=== PATIENT | male | born 1970 | race Caucasian/White ===

== ENCOUNTER → 2020-09-14 13:09 | Outpatient (BNVA) | payer OTHER, SELFPAY | PROVIDERS: Visit Provider Physician Assistant | DX: S93.692A Other sprain of left foot, initial encounter (principal); X50.1XXA Overexertion from prolonged static or awkward postures, initial encounter | CPT/HCPCS: 73630; 99203 ==

== ENCOUNTER 2024-08-31 15:29 | Emergency (ER) | payer OTHER, SELFPAY ==
--- NOTE | ~2024-08-31 | XR_ITS ---
CLINICAL HISTORY: HTN urgency 1 view chest x-ray. Comparison: None Findings: No consolidation. Heart size normal. No acute fracture. Impression: The lungs are clear. This document has been electronically signed by: Evan Carlos MD on 08/31/2024 19:37:31
--- NOTE | 2024-08-31 15:32 | ECG_ITS ---
Test Reason : CP Blood Pressure : */* mmHG Vent. Rate : 79 BPM Atrial Rate : 79 BPM P-R Int : 126 ms QRS Dur : 82 ms QT Int : 362 ms P-R-T Axes : 25 16 -79 degrees QTcB Int : 415 ms Normal sinus rhythm Minimal voltage criteria for LVH, may be normal variant ( Sokolow-Bill ) T wave abnormality, consider inferior ischemia Abnormal ECG No previous ECGs available Referred By: Generic ED Physician Electronically Signed By: Scott Payton
[2024-08-31 15:52] VITALS: BP 192/111; PULSE 85; RESP 16; TEMP 36.3; O2SAT 97; BMI 31.8
--- NOTE | 2024-08-31 15:52 | ED_ITS ---
HPI - General Adult General Chief complaint: General Medical Stated complaint: Sent from the [place], [facility] the [facility] Time Seen by Provider: 08/31/24 18:18 Source: patient Limitations: no limitations History of Present Illness ED Provider: Sowmya Lopez PA-C HPI narrative: 54-year-old male with a history of hypertension, who just started on amlodipine 3 days ago, presents with hypertension. Patient states he was seen at the [facility] for a separate issue, he was noted to be extremely hypertensive, they sent him to the emergency room for assessment. He had an EKG at that time that revealed a concerning change. Patient denies chest pain, shortness of breath. Denies headache, dizziness, nausea vomiting. Patient states he does have pending Cardiology consult. Related Data Allergies Allergy/AdvReac Type Severity Reaction Status Date / Time oxycodone Allergy Unknown Nausea Verified 08/31/24 15:56 Review of Systems 2 Review of Systems: Yes all other systems are reviewed and are negative Constitutional: Constitutional: Denies fatigue, Denies fever(s) and Denies headache(s) Eyes: Eyes: Denies change in vision ENT: Denies dizziness and Denies headache(s) Cardiovascular: Cardiovascular: Denies chest pain and Denies dyspnea Respiratory: Respiratory: Denies dyspnea Gastrointestinal: Gastrointestinal: Denies abdominal pain, Denies nausea and Denies vomiting Neurologic: Denies dizziness and Denies headache(s) Endocrine: Endocrine: Denies fatigue [facility] Past Medical History Attestation statement: The following information was validated with the patient. Social History Social History Alcohol intake: current Alcohol intake frequency: holidays/special occasions only Physical Exam ED Vital Signs: Vital Signs - 24 hr 08/31/24 15:52 08/31/24 16:59 08/31/24 19:11 Temperature 97.4 F Pulse Rate 85 73 Respiratory Rate 16 18 Blood Pressure 192/111 H 202/103 H 187/112 H Pulse Oximetry 97 97 Oxygen Delivery Method Room Air Room Air 08/31/24 19:21 Temperature Pulse Rate 66 Respiratory Rate 16 Blood Pressure 166/104 H Pulse Oximetry 98 Oxygen Delivery Method Room Air BMI result Body Mass Index 31.8 Const Other: Alert well-appearing Orientation/consciousness: patient oriented x3 Resp Effort & Inspection: normal respiratory effort Cardio Other: Normal peripheral perfusion Skin Other: Warm dry no rash Neuro General: patient oriented x3, gait normal, no focal motor deficits and CN's II- XI intact bilaterally Psych Other: Cooperative Course Course Course Narrative: This is an RME performed by Diane Mcfadden CNP: Additional HPI, ROS, PE not included below will be deferred to primary provider. Patient is a 54-year-old male who presents emergency department for evaluation [facility]. You reports that last he presented to primary doctor's office was diagnosed with gout in the right foot, states that incidentally while he was there PCP wanted him to get routine blood work as well as a blood pressure check. He was found to be hypertensive. They wanted him to go to the ER but I could not as he was on duty for work. He returned today for a blood pressure recheck in it was still elevated he has been on amlodipine 5 mg daily only for the past 2 days. An EKG done, he left the office and was called and advised to come to emergency department as he had an abnormal EKG something with the T's which was new in comparison to prior. Initial ECG with t inversions inferior and lateral leads no prior for comparison in our system. No active chest pain. No shortness of breath. No dyspnea on exertion. Plan: serum labs Reevaluation(s) Reevaluation #1: Blood pressure normalized after a dose of 20 mg of IV labetalol, 158 systolic Time: 20:33 Medications Administered Generic Name Dose Route Start Last Admin Trade Name Freq PRN Reason Stop Dose Admin Labetalol HCl 20 mg 08/31/24 18:47 08/31/24 19:11 Labetalol Hcl 100 Mg/20 Ml Vial IVPUSH 20 mg Q10M PRN Administration hypertesnion Protocol Medical Decision Making Medical Decision Making [facility] Narrative: 54-year-old male with a history of hypertension, who just started on amlodipine 3 days ago, presents with hypertension. Patient states he was seen at the [facility] for a separate issue, he was noted to be extremely hypertensive, they sent him to the emergency room for assessment. He had an EKG at that time that revealed a concerning change. Patient denies chest pain, shortness of breath. Denies headache, dizziness, nausea vomiting. Patient states he does have pending Cardiology consult. Problem: New hypertension History: Per patient I have considered the following differential diagnoses: Hypertensive urgency, hypertensive emergency, end-organ damage, ACS, new heart failure Plan: Patient is here with hypertensive urgency, he is asymptomatic. Screening labs including a cardiac enzymes EKG were obtained, I will obtain a delta troponin. His baseline creatinine is unknown, today is 1.5. We will add on a chest x-ray two view his cardiac silhouette. He has pending Cardiology follow up was which is ideal. Ordering IV labetalol. Labs: No leukocytosis, not anemic, no electrolyte abnormality, creatinine 1.5, unclear what his baseline is, troponin x2 flat, 8.6 and 10 respect to Chest x-ray: Findings: No consolidation. Heart size normal. No acute fracture. Impression: The lungs are clear. EKG: Normal sinus rhythm, T-wave abnormality noted inferior leads, rate of 79, QTC 415, no priors to compare to Lab Data 08/31/24 16:48 08/31/24 16:48 Labs: Lab Results 08/31/24 08/31/24 Range/Units 16:48 19:18 WBC 6.5 (4.8-10.8) X10*3/uL RBC 4.74 (4.60-5.80) X10*6/uL Hgb 14.9 (14.0-18.0) g/dl Hct 42.9 (42.0-52.0) % MCV 90.5 (80.0-98.0) fL MCH 31.4 (27.0-33.0) pg MCHC 34.7 (31.0-36.0) g/dl RDW 12.4 (11.0-16.0) % Plt Count 261 (160-400) X10*3/uL MPV 10.2 (9.4-12.4) fL Immature Gran % (Auto) 0.3 (0.0-0.4) % Neut % (Auto) 68.1 (45-73) % Lymph % (Auto) 20.4 (20-40) % [place] % (Auto) 7.7 (2-11) % Eos % (Auto) 2.9 (0-4) % Baso % (Auto) 0.6 (0-2) % Lymph # (Auto) 1.3 (1.2-4.9) X10*3/uL [place] # (Auto) 0.5 (0.1-1.2) X10*3/uL Eos # (Auto) 0.2 (0.0-0.4) X10*3/uL Baso # (Auto) 0.0 (0.0-0.2) X10*3/uL Abs Immat Gran (auto) 0.02 (0.00-0.03) X10*3/uL Absolute Neuts (auto) 4.4 (2.0-8.3) x10*3/uL Absolute Nucleated RBC 0.000 (0.0-0.012) X10*3/uL Nucleated RBC % (auto) 0.0 (0.0-0.2) /100WBC PT 11.2 (10.9-12.4) SEC INR 1.0 (0.9-1.1) Sodium 141 (135-145) mmol/L Potassium 4.2 (3.3-5.1) mmol/L Chloride 108 (96-108) mmol/L Carbon Dioxide 23 (22-29) mmol/L Anion Gap 14 (12-20) BUN 22 H (9-16) mg/dL Creatinine 1.50 H (0.5-1.4) mg/dL Estim Creat Clear Calc 66.0 Estimated GFR 49 Random Glucose 81 (60-115) mg/dL Calcium 9.8 (8.4-10.2) mg/dL Total Bilirubin 0.3 (0.0-1.0) mg/dL AST 28 (5-37) U/L ALT 40 (0-40) U/L Alkaline Phosphatase 64 (39-117) U/L Troponin I High Sens 8.6 10.0 (<3.5-35.0) ng/L Total Protein 7.6 (6.5-8.0) g/dL Albumin 4.4 (3.5-5.0) g/dL Discharge Plan Discharge Clinical Impression: Hypertension Patient Disposition: Home, Self-Care Instructions: Hypertension (ED) Additional Instructions: In addition to your screening labs, 2 cardiac enzymes were obtained, they are within normal range. You do have an abnormality noted on the EKG, we have no prior studies to compare to, you could have had these changes for years. I do understand that you have cardiology consult pending, be sure to keep that appointment. The chest x-ray was clear. Continue to take your blood pressure medication as directed. Print Language: Libyan
[2024-08-31 16:53] LABS: MANUAL DIFF FLAG NO
[2024-08-31 16:59] VITALS: BP 202/103; PULSE 73; RESP 18; O2SAT 97
[2024-08-31 17:02] LABS: Hematocrit 42.9 % (42.0-52.0); Hemoglobin 14.9 g/dl (14.0-18.0); Imm Gran Abs Auto 0.02 X10*3/uL (0.00-0.03); Imm Gran Pct Auto 0.3 % (0.0-0.4); Lymphocytes Absolute Auto 1.3 X10*3/uL (1.2-4.9); Mean Corpuscular HGB Conc 34.7 g/dl (31.0-36.0); Mean Corpuscular Hemoglobin 31.4 pg (27.0-33.0); Mean Corpuscular Volume 90.5 fL (80.0-98.0); NRBC Abs Auto 0.000 X10*3/uL (0.0-0.012); NRBC Pct Auto 0.0 /100WBC (0.0-0.2); Platelet Count 261 X10*3/uL (160-400); Red Blood Count 4.74 X10*6/uL (4.60-5.80); White Blood Count 6.5 X10*3/uL (4.8-10.8)
[2024-08-31 17:05] LABS: INTERNATIONAL NORM RATIO 1.0 (0.9-1.1); Prothrombin Time 11.2 SEC (10.9-12.4)
[2024-08-31 17:11] LABS: Alanine Aminotransferase 40 U/L (0-40); Albumin Level 4.4 g/dL (3.5-5.0); Alkaline Phosphatase 64 U/L (39-117); Anion Gap 14 (12-20); Aspartate Amino Transferase 28 U/L (5-37); Blood Urea Nitrogen 22 mg/dL (9-16); Calcium 9.8 mg/dL (8.4-10.2); Carbon Dioxide 23 mmol/L (22-29); Chloride 108 mmol/L (96-108); Creatinine Clr Calc Pharmacy 66.0; Estimated Glomerular Filt Rate 49; Potassium 4.2 mmol/L (3.3-5.1); Sodium 141 mmol/L (135-145); Total Protein 7.6 g/dL (6.5-8.0)
[2024-08-31 17:18] LABS: Troponin-I High Sensitivity 8.6 ng/L (<3.5-35.0)
[2024-08-31 19:11] VITALS: BP 187/112
[2024-08-31 19:21] VITALS: BP 166/104; PULSE 66; RESP 16; O2SAT 98
[2024-08-31 19:42] LABS: Troponin-I High Sensitivity 10.0 ng/L (<3.5-35.0)
[2024-08-31 20:33] VITALS: BP 166/104; PULSE 66; RESP 16; TEMP 36.9; O2SAT 98
== END 2024-08-31 20:33 | disposition home or self-care (01) ==
PROVIDERS: Physician Assistant Medical; Emergency Provider Emergency Medicine
DX: R94.31 Abnormal electrocardiogram [ECG] [EKG] (principal); I10 Essential (primary) hypertension; M10.071 Idiopathic gout, right ankle and foot; Z51.81 Encounter for therapeutic drug level monitoring
CPT/HCPCS: 36415; 71045; 80053; 84484; 85025; 85610; 93005; 96374; 99284; J1920

== ENCOUNTER → 2024-08-31 15:32 | Outpatient (BNV) | payer OTHER, SELFPAY | PROVIDERS: Emergency Provider Emergency Medicine; Visit Provider Internal Medicine Cardiovascular Disease | DX: R94.31 Abnormal electrocardiogram [ECG] [EKG] (principal); R07.9 Chest pain, unspecified | CPT/HCPCS: 93010 ==

== ENCOUNTER → 2024-08-31 18:46 | Outpatient (BNV) | payer OTHER, SELFPAY | PROVIDERS: Visit Provider Radiology Diagnostic Radiology | DX: I16.0 Hypertensive urgency (principal) | CPT/HCPCS: 71045 ==